=== PATIENT | female | born 1985 | race African-American/Black ===

== ENCOUNTER 2019-10-11 22:18 | Emergency (ER) | payer OTHER, SELFPAY ==
[2019-10-11 22:20] VITALS: BP 156/78; PULSE 86; RESP 17; TEMP 36.8; O2SAT 98
--- NOTE | 2019-10-11 23:27 | ED.DENTAL ---
HPI - Dental/Oral General Chief complaint: Dental/Oral Stated complaint: toothache Time Seen by Provider: 10/11/19 23:21 History of Present Illness HPI Narrative: Patient presents with a toothache for 3 days. She said that the last time she had a toothache they took out the wisdom tooth but she said that was not the tooth that was hurting. She does not have a regular dentist. The pain is on the upper right, tooth #2. She has not had fever chills or sweats. She has no medical problems. She has not been able to sleep due to the pain. She took off work yesterday and today, and needs a work note. She tried Tylenol but it did not help. MD Complaint: tooth pain Onset (ago): day(s) Duration: constant Severity: severe Severity scale (1-10): 10 Relieving factors: nothing Context: history of dental caries Associated symptoms: other (Frontal headache) Related Data Allergies Allergy/AdvReac Type Severity Reaction Status Date / Time latex Allergy Unknown Unknown Verified 10/11/19 22:22 Penicillins Allergy Unknown Hives / Verified 10/11/19 22:22 Red Face Sulfa (Sulfonamide Allergy Unknown Unknown Verified 10/11/19 22:22 Antibiotics) SEASONAL ALLERGENS Allergy Unknown Unknown Uncoded 05/07/19 16:03 Review of Systems Review of Systems: Narrative: CONSTITUTIONAL: Denies fever, chills, or sweats. EYES: Denies visual changes, redness, or discharge. ENT: Denies rhinorrhea, congestion, sore throat, or otalgia. CARDIOVASCULAR: Denies chest pain, palpitations, or edema. RESPIRATORY: Denies cough or dyspnea. GASTROINTESTINAL: Denies abdominal pain, nausea, vomiting, or diarrhea. GENITOURINARY: Denies dysuria or hematuria. SKIN: Denies rash or itching. MUSCULOSKELETAL: Denies back pain, joint pain, or myalgia. NEUROLOGIC: Denies headache, numbness, or weakness. PSYCHIATRIC: Denies anxiety or depression. [facility] Surgical History Surgical History (Updated 05/07/19 @ 16:38 by Chris Claros PA-C) History of orthopedic surgery Exam Narrative: Exam Narrative: GENERAL: Well-appearing, well-nourished, and in no acute distress. Morbid obesity HEAD: Normocephalic, atraumatic. EYES: PERRLA and EOMI. ENT: Nares clear, no rhinorrhea or epistaxis. Mucous membranes moist. Swelling of the gums lateral to tooth 2 and 3 right upper. NECK: Supple. No swollen glands CHEST: Clear to auscultation. No respiratory distress. HEART: Regular rate and rhythm. No murmur heard. Normal peripheral pulses. ABDOMEN: Soft, nontender, nondistended, normal active bowel sounds. EXTREMITIES: Normal range of motion. No edema. SKIN: Warm, dry, no rash. NEURO: No focal deficits. Alert and oriented x3. PSYCH: Normal mood and affect. Course Vital Signs Vital signs: Vital Signs Temperature 98.2 F 10/11/19 22:20 Pulse Rate 86 10/11/19 22:20 Respiratory Rate 17 10/11/19 22:20 Blood Pressure 156/78 H 10/11/19 22:20 Pulse Oximetry 98 10/11/19 22:20 Temperature 98.2 F 10/11/19 22:20 Pulse Rate 86 10/11/19 22:20 Respiratory Rate 17 10/11/19 22:20 Blood Pressure 156/78 H 10/11/19 22:20 Pulse Oximetry 98 10/11/19 22:20 MDM - Dental/Oral Medical Records Attestation: I reviewed the patient's medical records. Discharge Plan Discharge Clinical Impression: Dental abscess, Toothache Patient Disposition: Home, Self-Care Condition: Stable Instructions: Antibiotic Form, Dental Abscess (ED) Additional Instructions: Call Dr. Camargo at [phone] for a dental appointment. Prescriptions: New clindamycin HCl 300 mg capsule 300 mg PO Q8H Qty: 30 RF: 0 naproxen sodium [Anaprox DS] 550 mg tablet 550 mg PO Q12H PRN (Reason: pain) Qty: 10 RF: 0 Follow-up/Referrals: Joe Ireland MD [Primary Care Provider] - Stand Alone Forms: Work/School Release IP Time of Disposition: 23:37
[2019-10-11 23:42] VITALS: BP 141/82; PULSE 81; RESP 19; TEMP 36.7; O2SAT 100
[2019-10-11] MEDS: KETOROLAC 30 MG/ML VIAL (*BKC) IM (23:43)
== END 2019-10-11 23:43 | disposition home or self-care (01) ==
PROVIDERS: Emergency Provider Emergency Medicine; PCP Obstetrics & Gynecology
DX: K04.7 Periapical abscess without sinus (principal); K08.89 Other specified disorders of teeth and supporting structures
CPT/HCPCS: 96372; 99283; J1885

== ENCOUNTER 2021-10-05 14:54 | Emergency (ER) | payer OTHER, SELFPAY ==
[2021-10-05 14:59] VITALS: BP 133/61; PULSE 88; RESP 18; TEMP 36.1; O2SAT 100
--- NOTE | 2021-10-05 15:12 | PC.NURSE ---
Patient decided that she no longer wanted to be seen by a provider after speaking with the plate glass installer helper regarding her daughter and the treatment plan for her daughter.
== END 2021-10-05 15:12 | disposition left against medical advice (07) ==
PROVIDERS: PCP Obstetrics & Gynecology
DX: Z20.822 Contact with and (suspected) exposure to COVID-19 (principal)
CPT/HCPCS: 99199

== ENCOUNTER 2021-11-22 10:47 | Emergency (ER) | payer OTHER, SELFPAY ==
[2021-11-22 10:54] VITALS: O2SAT 99
[2021-11-22 11:07] VITALS: O2SAT 99
--- NOTE | 2021-11-22 11:09 | ED.URI ---
HPI - URI/Sore Throat General Chief Complaint: Upper Respiratory Infection Stated Complaint: covid exposure with HOFF, SOB, Sore Throat and chill Time Seen by Provider: 11/22/21 10:57 History of Present Illness HPI Narrative: Patient is a 36-year-old female with a history of seasonal allergies here for evaluation of sore throat, congestion, headache, nonproductive cough and rhinorrhea for the past day and a half. Patient states that she was exposed to COVID about 3 days ago and has been quarantining ever since. She received 2 COVID shots but not the booster. She has not taken her temperature but does note that she has felt chills. She has not attempted any [id number] medications. She is tolerating her secretions. Denies any chest pain, shortness of breath, leg swelling, syncope, weakness. Related Data Allergies Allergy/AdvReac Type Severity Reaction Status Date / Time latex Allergy Unknown Unknown Verified 11/22/21 10:48 Penicillins Allergy Unknown Hives / Verified 11/22/21 10:48 Red Face Sulfa (Sulfonamide Allergy Unknown Unknown Verified 11/22/21 10:48 Antibiotics) SEASONAL ALLERGENS Allergy Unknown Unknown Uncoded 11/22/21 10:48 Review of Systems Review of Systems: Gen: Reports chills Eyes: Denies eye pain or visual change ENT: Reports congestion, sore throat, rhinorrhea Respiratory: Reports nonproductive cough. Denies shortness of breath CV: Denies chest pain or palpitations GI: Denies abdominal pain nausea, emesis or diarrhea : denies burning, urgency, frequency or hematuria Musculoskeletal: Denies back pain or muscle pain Neuro: Denies numbness, tingling, weakness or focal weakness Skin: Denies rash Except as documented, all other systems reviewed and negative PMFSH Surgical History Surgical History History of orthopedic surgery Exam Narrative: APPEARANCE: Well appearing, no pain in distress, well-nourished. Head: Normocephalic and atraumatic. EYES: PERRLA/EOMI, conjunctivae clear NOSE: Clear nasal drainage noted. No tenderness along maxillary or frontal sinuses EARS: External ear normal in appearance THROAT: Oropharynx is slightly erythematous, no exudates or tonsillar swelling/deviation noted. Postnasal drip noted. Mucous membranes are moist. NECK: Supple. No adenopathy, no masses. RESPIRATORY: Airway patent, respirations nonlabored. Clear to auscultation bilaterally, no rales, rhonchi, wheezing. CARDIOVASCULAR: Regular rate and rhythm without murmurs, rubs, or gallops. ABDOMINAL: Normoactive bowel sounds. Soft, nontender, nondistended. No rebound tenderness or guarding. MUSCULOSKELETAL: Extremities are warm and well-perfused. Moves all extremities well. No edema. NEURO: Normal speech. No focal neurologic deficits. SKIN: Skin is warm and dry. No rashes. PSYCHIATRIC: Normal affect/mood. Course Vital Signs Vital signs: Vital Signs Pulse Oximetry 99 11/22/21 10:54 Oxygen Delivery Room Air 11/22/21 10:54 Temperature 97.3 F L 11/22/21 11:53 Pulse Rate 76 11/22/21 11:53 Respiratory Rate 16 11/22/21 11:53 Blood Pressure 120/83 11/22/21 11:53 Pulse Oximetry 100 11/22/21 11:53 Oxygen Delivery Room Air 11/22/21 10:54 MDM - URI/Sore Throat MDM Narrative Medical decision making narrative: 36-year-old female here for evaluation of upper respiratory infectious symptoms after being exposed to COVID. Here she is nontoxic-appearing, tolerating secretions with normal vital signs, her heart and lungs are clear to auscultation. Her COVID test was positive, which likely explains her symptoms. She was advised to quarantine and use supportive care; does not have significant past medical history to indicate that she is a candidate for Paxlovid. She was given reasons to return to the ED. Lab Data Labs: Lab Results 11/22/21 Range/Units 10:58 SARS-CoV-2 RNA (RT-PCR) Positive A Discharge Plan
[2021-11-22 11:15] VITALS: O2SAT 98
[2021-11-22] MEDS: ACETAMINOPHEN 325 MG TABLET 650 MG PO (11:15)
[2021-11-22 11:18] VITALS: BP 126/79; O2SAT 100
[2021-11-22 11:39] LABS: SARS-CoV-2 RNA PCR Positive
[2021-11-22 11:53] VITALS: BP 120/83; PULSE 76; RESP 16; TEMP 36.3; O2SAT 100
== END 2021-11-22 12:02 | disposition home or self-care (01) ==
PROVIDERS: Physician Assistant; Emergency Provider Preventive Medicine Aerospace Medicine; PCP Obstetrics & Gynecology
DX: U07.1 COVID-19 (principal)
CPT/HCPCS: 99283; A9270; C9803; U0003; U0005